=== PATIENT | female | born 1995 | race Hispanic/Latino ===

== ENCOUNTER 2025-06-07 11:48 | Emergency (ER) | payer MEDICAID ==
[~2025-06-07] VITALS: Ht 157.5 cm; Wt 90.7 kg
[2025-06-07 11:57] VITALS: BP 130/90; PULSE 90; RESP 18; TEMP 98.1; O2SAT 98
--- NOTE | 2025-06-07 12:10 | NUR ---
PT ARRIVED TO ER SMALL PUNCTURE/ABRASION WOUND TO RIGHT ANKLE FELT PAIN WHILE WALKING IN ABOUT 4 FT OF WATER [place] POSSIBLE SINGRAY OR SUBMERGED DEBRIS UNKNOWN DUE TO LACK OF VISABILITY
[2025-06-07] MEDS ORDERED: CEPH500T PO (13:23)
--- NOTE | 2025-06-07 13:24 | ERN ---
ED Note History of Present Illness Stated Complaint: INSECT Chief Complaint: Insect Bite Time Seen by MD: 11:56 Time Seen by Midlevel: 11:57 Dictation: 29-year-old female who presents to the emergency department due to reported having sustained a suspected stingray sting to the left ankle. Patient states that this happened approximately 1 hour ago his [place] and [place] she was walking in the water she felt the pain. At this time, she rates her level of discomfort as a 6/10. There is no report of any fever associated with this. Patient states that the pain is constant regardless of movement. Upon initial evaluation, the patient presents moderately uncomfortable looking. Allergies: Coded Allergies: No Known Allergies (Unverified Allergy, Unknown, 06/07/25) Emergency Care PERMIT SPECIALIST: None Home Meds Active Scripts Cephalexin (Cephalexin) 500 Mg Tablet, 1 TAB PO BID for 3 Days, #6 TAB 0 Refills Prov:BC ORTIZ FLIGHT FOLLOWER 06/07/25 Past Medical History Past Medical History: No Pertinent History Surgical History: None Review of System Dictation Skin: Puncture wound left ankle Initial Vital Sign VS Vital Signs Date Time Temp Pulse Resp B/P (MAP) Pulse Ox O2 Delivery O2 Flow Rate FiO2 06/07/25 11:50 97.2 91 20 130/93 97 Room Air 06/07/25 11:57 0 21 Physical Exam Dictation General: awake, alert, NAD Head/Face: Normocephalic, atraumatic Eyes: PERRL, EOMI ENT: Oral mucosa moist Neck: Trachea midline, supple Cardiovascular: RRR, no edema Respiratory: Symmetrical, non-labored Abdomen: Soft, non-tender, non-distended, no guarding. Skin: Warm, dry, good turgor, no rash, and single puncture wound noted to the left medial ankle is with bleeding controlled. MS/Extremity: Pulses equal, no cyanosis, neurovascular intact, FROM Neuro: COAx4, GCS 15, steady gait, Psych: Normal behavior, mood, and affect normal Results (Laboratory/Radiology) X-RAY Comment: Two-view x-ray with no radiopaque foreign object noted as interpreted me. ED Course ED Course Orders Procedure Category Date Status Time Ankle 2vws Lt RAD 06/07/25 Resulted 12:06 Acetaminophen 500mg PHA 06/07/25 Complete Tab (Tylenol 500mg T 13:00 Acetaminophen 500mg PHA 06/07/25 Complete Tab (Tylenol 500mg T 13:10 Current Medications Medications (Trade) Dose Ordered Sig/Faby Route PRN Reason Start Time Stop Time Status Last Admin Dose Admin Acetaminophen (TYLenol 500MG TAB) 500 mg STK-MED ONCE .ROUTE 06/07/25 13:10 06/07/25 13:10 DC Acetaminophen (TYLenol 500MG TAB) 1,000 mg ONCE ONCE PO 06/07/25 13:00 06/07/25 13:11 DC 06/07/25 13:12 Vital Signs Date Time Temp Pulse Resp B/P (MAP) Pulse Ox O2 Delivery O2 Flow Rate FiO2 06/07/25 11:57 98.1 90 18 130/90 98 Room Air* 0 21 06/07/25 11:50 97.2 91 20 130/93 97 Room Air Medical Decision Making MDM MDM: Differential diagnosis: Puncture wound left ankle, abrasion left ankle, laceration left ankle. Rationale: Tests considered and ordered secondary to shared decision making include: Previous outside records reviewed: Old ER visits. Risk of complication and/or morbidity or mortality of patient management: None Medications-Per medication reconciliation Need for hospitalization: Patient does not meet criteria for hospitalization. Need for emergency major/minor surgery: No There are no social concerns with this patient. Prescription drug management Prescriptions will include symptomatic care Patient's prior external medical records from other ER visits were reviewed by me as indicated. Prior testing and results from previous visits were reviewed. Prior tests were taken into account with medical decision making and resource utilization, independent historian/historians were used to obtain complete medical history. I independently interpreted the test that were performed, results were reviewed by me and considered findings on radiology if ordered. Medical management and examination interpretation discussions were had by me with other qualified healthcare professionals as indicated for the patient's care. DX & DISP Disposition: Discharge Departure Impression: Primary Impression: Poisoning by stingray Condition: Stable Scripts Cephalexin (Cephalexin) 500 Mg Tablet 1 TAB PO BID for 3 Days, #6 TAB 0 Refills Prov: BC ORTIZ 06/07/25 Referrals: SELF,REFERRAL (PCP) Time of Disposition: 13:23 BC ORTIZ Jun 07, 2025 13:24 GORDO MOLINA DO Jun 07, 2025 16:41
--- NOTE | 2025-06-07 13:39 | HMCIMG ---
EXAM: CR right ankle, 2 View. CLINICAL HISTORY: pain COMPARISON: None provided. FINDINGS: BONES: No acute fracture or aggressive appearing osseous lesion. JOINTS: The joint spaces appear within normal limits. No dislocation. No radiographic evidence of a joint effusion. SOFT TISSUES: Mild soft tissue edema at the left ankle. IMPRESSION: 1. No acute osseous injury. 2. Mild soft tissue edema at the left ankle. /[place]
== END 2025-06-07 13:49 | disposition home or self-care (01) ==
LOC: EDH 11:48
DX: T63.511A Toxic effect of contact with stingray, accidental (unintentional), initial encounter (principal); M25.572 Pain in left ankle and joints of left foot; Y92.89 Other specified places as the place of occurrence of the external cause
CPT/HCPCS: 73600; 99283